=== PATIENT | male | born 1995 | race American Indian/Alaskan Native ===

== ENCOUNTER 2017-10-22 21:37 | Emergency (ER) | payer SELFPAY ==
[2017-10-22] MEDS ORDERED: NACL 0.9% 1000 ML 1,000 ML IV ONE (21:45)
[2017-10-22 22:04] LABS: Hematocrit 38.5 % (35.5-45.6); Hemoglobin 12.4 gm/dl (11.8-15.2); Mean Corpuscular HGB Conc 32 % (32-34); Mean Corpuscular Hemoglobin 29 pg (28-32); Mean Corpuscular Volume 90 fl (84-94); Platelet Count 315 K/mm3 (140-440); Red Cell Distribution Width 12.2 % (13.2-15.2)
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
[2017-10-22 22:08] VITALS: BP 125/65
[2017-10-22 22:14] LABS: Alanine Aminotransferase 62 units/L (7-56); Albumin 4.2 g/dL (3.9-5); BUN/Creatinine Ratio 11; Blood Urea Nitrogen 13 mg/dL (9-20); Calcium 9.1 mg/dL (8.4-10.2); Hemolysis Index 82
[2017-10-22] MEDS ORDERED: NACL 0.9% 1000 ML 2,000 ML IV ONE (22:15)
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
[2017-10-23 00:39] LABS: Band Neutrophils # (Manual) 0.1 K/mm3; Basophils % (Manual) 0 % (0.0-1.8); Total Cells Counted 100
[2017-10-23 00:40] LABS: Anisocytosis 1+; Platelet Estimate Consistent w Auto
[2017-10-23] MEDS ORDERED: NACL 0.9% 1000 ML 3,000 ML ONE (01:36)
== END 2017-10-22 22:59 | disposition other institution (70) ==
LOC: ED 21:37
DX: S31.109A Unspecified open wound of abdominal wall, unspecified quadrant without penetration into peritoneal cavity, initial encounter (principal); I95.9 Hypotension, unspecified; W34.00XA Accidental discharge from unspecified firearms or gun, initial encounter; Y93.89 Activity, other specified; Y92.89 Other specified places as the place of occurrence of the external cause; Y99.8 Other external cause status
CPT/HCPCS: 36415; 71045; 74018; 80053; 85007; 85025; 86850; 86900; 86901; 86920; 96360; 99291; P9016; J7030